=== PATIENT | female | born 1975 | race American Indian/Alaskan Native ===

== ENCOUNTER 2019-03-12 10:27 | Outpatient (CLI) | payer OTHER ==
--- NOTE | 2019-03-12 14:17 | XRay Report ---
CHEST 2 VIEWS INDICATION / CLINICAL INFORMATION: ENCOUNTER FOR OTHER PREPROCEDURAL EXAM Z01.818. COMPARISON: None available. FINDINGS: SUPPORT DEVICES: None. HEART / MEDIASTINUM: No significant abnormality. LUNGS / PLEURA: No significant pulmonary or pleural abnormality. No pneumothorax. ADDITIONAL FINDINGS: No significant additional findings. IMPRESSION: 1. No acute findings. Signer Name: Ronnie Devi MD Signed: 03/12/2019 2:12 PM Workstation Name: [id number]
--- NOTE | 2019-03-15 13:08 | Mammography Report ---
DIGITAL SCREENING MAMMOGRAM WITH CAD, 03/12/2019 INDICATION: Routine screening mammography. TECHNIQUE: Digital bilateral 2D mammography was obtained in the craniocaudal and mediolateral obliq ue projections. This examination was interpreted with the benefit of Computer-Aided Detection analysi s. COMPARISON: 12/12/2014 FINDINGS: Breast Density: The breasts are heterogeneously dense, which may obscure small masses. There is no evidence of dominant mass, suspicious calcifications or architectural distortion in eithe r breast. Scattered bilateral largely punctate calcifications with benign morphology. IMPRESSION: No mammographic evidence of malignancy. Follow up recommendation: Routine yearly BI-RADS Category 2: Benign. A "normal" or negative report should not discourage follow up or biopsy of a clinically significant f inding. A written summary of these findings will be mailed to the patient. The patient will be entered into a mammography reporting system which will generate a reminder letter for the patient's next appointmen t at the appropriate interval. The [employer] recommends yearly mammograms starting at age 40 and continuing as l gerry as a woman is in good health. Breast MRI is recommended for women with an approximate 20-25% or greater lifetime risk of breast cancer, including women with a strong family history of breast or [place] cancer or who have been treated for Hodgkin's disease. Signer Name: Hamzah Lucas MD Signed: 03/15/2019 1:04 PM Workstation Name: [id number]
== END 2019-03-12 10:28 | disposition home or self-care (01) ==
LOC: SPVWC 10:27
PROVIDERS: ATTEND Internal Medicine
DX: Z12.31 Encounter for screening mammogram for malignant neoplasm of breast (principal); Z01.818 Encounter for other preprocedural examination
CPT/HCPCS: 71046; 77067